=== PATIENT | female | born 1965 | race Two or more races ===

== ENCOUNTER 2020-09-18 10:19 | Emergency (ER) | payer MEDICAID ==
[~2020-09-18] VITALS: Ht 175.3 cm; Wt 95.3 kg
[2020-09-18 10:30] VITALS: BP 139/91
[2020-09-18] MEDS ORDERED: KETOROLAC TROMETH 60MG/2ML VIAL IM ONE (12:00)
== END 2020-09-18 12:51 | disposition home or self-care (01) ==
LOC: ER 10:19
DX: M54.42 Lumbago with sciatica, left side (principal); G89.29 Other chronic pain
CPT/HCPCS: 72100; 96372; 99283; J1885